=== PATIENT | male | born 1980 | race Caucasian/White ===

== ENCOUNTER 2017-12-03 08:18 | Emergency (ER) | payer SELFPAY ==
[2017-12-03 08:27] VITALS: BP 147/92; PULSE 72; TEMP 98.6; BMI 29.1
--- NOTE | 2017-12-03 08:55 | PDOC ---
History of Present Illness - General Chief Complaint: Shortness of Breath Stated Complaint: SOB, LT ARM NUMBNESS Time Seen by Provider: 12/03/17 08:54 - History of Present Illness Initial Comments: 12/03/17 19:24 Patient is a 37-year-old male with no past medical history who presents emergency department today complaining of left arm numbness right arm numbness and shortness of breath. Patient states that he had similar symptoms yesterday after getting into an argument with his girlfriend. They went away last night. Today he was driving experienced similar symptoms. He pulled over and had his family picked amount to come to the emergency department. Admits to chest tightness, difficulty breathing, shortness of breath, right and left arm numbness. Denies fevers, chills, cough, palpitations, nausea, vomiting and diarrhea. Past History - Travel Traveled outside of the country in the last 30 days: No Close contact w/someone who was outside of country & ill: No - Past Medical History Allergies/Adverse Reactions: Allergies Allergy/AdvReac Type Severity Reaction Status Date / Time No Known Allergies Allergy Verified 12/03/17 08:21 Home Medications: Ambulatory Orders Diazepam [Valium] 2 mg PO DAILY PRN #7 tablet MDD 2 12/03/17 COPD: No - Suicide/Smoking/Psychosocial Hx Smoking History: Current every day smoker Have you smoked in the past 12 months: Yes Number of Cigarettes Smoked Daily: 5 Information on smoking cessation initiated: Yes 'Breaking Loose' booklet given: 12/03/17 Hx Alcohol Use: No Drug/Substance Use Hx: No Substance Use Type: None Review of Systems - Review of Systems Able to Perform ROS?: Yes Comments:: 12/03/17 08:56 CONSTITUTIONAL: Absent: fever, chills, diaphoresis, generalized weakness, malaise, loss of appetite HEENT: Absent: rhinorrhea, nasal congestion, throat pain, throat swelling, difficulty swallowing, mouth swelling, ear pain, eye pain, visual Changes CARDIOVASCULAR: Absent: chest pain, loss of consciousness, palpitations, irregular heart rate, peripheral edema RESPIRATORY: Present: shortness of breath Absent: cough, shortness of breath, dyspnea with exertion, orthopnea, wheezing, stridor, hemoptysis GASTROINTESTINAL: Absent: abdominal pain, abdominal distension, nausea, vomiting, diarrhea, constipation, melena, hematochezia GENITOURINARY: Absent: dysuria, frequency, urgency, hesitancy, hematuria, flank pain, genital pain MUSCULOSKELETAL: Absent: myalgia, arthralgia, joint swelling SKIN: Absent: rash, itching, pallor NEUROLOGIC: Present: L arm numbness Absent: headache, focal weakness or paresthesias, dizziness, unsteady gait, seizure, mental status changes, bladder or bowel incontinence PSYCHIATRIC: Present: Anxiety Absent: depression, suicidal or homicidal ideation, hallucinations. Is the patient limited [place]uran proficient: No *Physical Exam - Vital Signs Last Vital Signs Temp Pulse Resp BP Pulse Ox 98.6 F 72 18 147/92 100 12/03/17 08:21 12/03/17 08:21 12/03/17 08:21 12/03/17 08:21 12/03/17 08:21 - Physical Exam Comments: 12/03/17 08:57 GENERAL: Well developed, well nourished. Awake and alert. No acute distress. HEENT: Normocephalic, atraumatic. PERRLA, EOMI. No conjunctival pallor. Sclera are non- icteric. Moist mucous membranes. Oropharynx is clear. NECK: Supple. Full ROM. No JVD. Carotid pulses 2+ and symmetric, without bruits. No thyromegaly. No lymphadenopathy. CARDIOVASCULAR: Regular rate and rhythm. No murmurs, rubs, or gallops. Distal pulses are 2+ and symmetric. PULMONARY: No evidence of respiratory distress. Lungs clear to auscultation bilaterally. No wheezing, rales or rhonchi. ABDOMINAL: Soft. Non-tender. Non-distended. No rebound or guarding. No organomegaly. Normoactive bowel sounds. MUSCULOSKELETAL Normal range of motion at all joints. No bony deformities or tenderness. No CVA tenderness. EXTREMITIES: No cyanosis. No clubbing. No edema. No calf tenderness. SKIN: Warm and dry. Normal capillary refill. No rashes. No jaundice. NEUROLOGICAL: Alert, awake, appropriate. Cranial nerves 2-12 intact. No deficits to light touch and temperature in face, upper extremities and lower extremities. No motor deficits in the in face, upper extremities and lower extremities. Normoreflexic in the upper and lower extremities. Normal speech. Toes are down- going bilaterally. Gait is normal without ataxia. PSYCHIATRIC: Cooperative. Good eye contact. Appropriate mood and affect. Medical Decision Making - Medical Decision Making 12/03/17 09:04 EKG: Rate 51 bpm sinus rhythm. QTC 435. Normal axis. No acute ST-T wave changes. Impression sinus bradycardia. 12/03/17 11:22 Patient is a 37-year-old male with no past medical history is emergency department today complaining of shortness of breath arm numbness and chest tightness. Patient's vitals are stable, story is likely diagnosis panic attack. EKG documented above. Troponin is negative at 0.03. Patient Perc's out. Pt. has relief of symptoms with valium. Explained to patient to avoid stressful situations and To take Valium only when he feels the symptoms coming on. Psychiatry referral given. Return precautions given. Patient her symptoms all discharge instructions and all questions were answered. *DC/Admit/Observation/Transfer Diagnosis at time of Disposition: Panic attack - Discharge Dispostion Disposition: HOME Condition at time of disposition: Stable Admit: No - Prescriptions Prescriptions: Diazepam [Valium] 2 mg PO DAILY PRN #7 tablet MDD 2 PRN Reason: Anxiety - Referrals Referrals: Ricardo Beard, [employer] [Nurse Practitioner] - - Patient Instructions Printed Discharge Instructions: DI for Panic Disorder Additional Instructions: Your EKG and blood work were normal today. Your symptoms are most likely related to a panic attack. You may take the medication as prescribed when you feel your panic attack symptoms coming on. Please follow-up with the referral provided for you this is for a psychiatrist. Please avoid stressful situations. Avoid alcohol. Return to the emergency department if you have worsening chest pain despite treatment, shortness of breath, difficulty breathing, or have any changes in your symptoms. - Post Discharge Activity Forms/Work/School Notes: Back to Work
[2017-12-03] MEDS ORDERED: diazePAM 2 MG TABLET PO ONE (09:20)
[2017-12-03] MEDS ORDERED: diazePAM 2 MG TABLET ONE (09:32)
--- NOTE | 2017-12-03 11:27 | EKG ---
Test Reason : Blood Pressure : / mmHG Vent. Rate : 051 BPM Atrial Rate : 051 BPM P-R Int : 146 ms QRS Dur : 102 ms QT Int : 472 ms P-R-T Axes : 035 044 046 degrees QTc Int : 435 ms SINUS BRADYCARDIA OTHERWISE NORMAL ECG NO PREVIOUS ECGS AVAILABLE Confirmed by NATE BELLA MD ([id number]) on 12/03/2017 11:27:06 AM Referred By: CARLSO Confirmed By:NATE BELLA MD
== END 2017-12-03 11:25 | disposition home or self-care (01) ==
LOC: JERFT 08:18
DX: F41.0 Panic disorder [episodic paroxysmal anxiety] (principal); F17.210 Nicotine dependence, cigarettes, uncomplicated
CPT/HCPCS: 36415; 71046-TC-FY; 84484; 93005; 93010; 99281-25